=== PATIENT | female | born 1985 | race Caucasian/White ===

== ENCOUNTER 2021-05-04 09:18 | Outpatient (RCR) | payer OTHER, SELFPAY ==
[2021-05-04 09:25] VITALS: BMI 47.6
== END 2021-06-17 14:16 | disposition home or self-care (01) ==
LOC: ANHDMC 09:18
PROVIDERS: PCP Family Medicine; Visit Provider Family Medicine
DX: E66.01 Morbid (severe) obesity due to excess calories (principal); Z71.3 Dietary counseling and surveillance
CPT/HCPCS: 97802

== ENCOUNTER → 2021-07-27 07:41 | Outpatient (CLI) | payer OTHER, SELFPAY ==
--- NOTE | ~2021-07-27 | US_ITS ---
US abdomen complete EXAMINATION: US Abdomen Complete INDICATION: Elevated liver function PROCEDURE: Realtime High Resolution abdomen ultrasound. COMPARISON: Ultrasound dated 06/16/2011 FINDINGS: Gallbladder within normal limits. No gallstones, pericholecystic fluid, gallbladder wall t hickening or biliary dilatation. Common bile duct measures 4 mm. Liver echotexture is increased, consistent with fatty infiltration. Pancreas not adequately visualiz ed. Pancreatic tail is obscured by bowel gas. Spleen is unremarkeable. Renal echotexture is within normal limits bilaterally without hydronephrosis, contour deforming mass or renal stone. Right kidney measures 10.6 cm. Left kidney measures 11.5 cm. The aorta and IVC are not well visualized.. Portal vein is patent. No sonographic Sparks's sign indic ated by the technologist. IMPRESSION: 1: Hepatic steatosis. Reviewed, dictated and finalized at location A. IMPRESSION: 1: Hepatic steatosis.
== END ==
PROVIDERS: PCP Family Medicine; Visit Provider Physician Assistant Medical
DX: R79.89 Other specified abnormal findings of blood chemistry (principal); K76.0 Fatty (change of) liver, not elsewhere classified
CPT/HCPCS: 76700

== ENCOUNTER 2021-09-09 07:47 | Outpatient (CLI) | payer OTHER, SELFPAY ==
--- NOTE | 2021-09-14 17:06 | WPDHOMESLEEP ---
Sleep Study - Home Unattended Date of Study: 09/09/21 Ordering Provider: Charly Amador MD Interpreting Provider: Arleth Cramer, DO Home Sleep Study Type: Watch PAT Height: 1.68 m Weight: 133.81 kg Body Mass Index: 47.6 Neck Circumference (inches): 16 [place]: 18 Reason for Sleep Study Daytime hypersomnia, multiple nighttime awakenings Sleep History The patient is a 35-year-old female with anxiety, depression and fatty liver disease that had a sleep study ordered by her primary care for evaluation of sleep apnea. The patient occasionally awakens from sleep short of breath. She occasionally awakens at night with heartburn, belching or cough. She constantly snores loud enough that others complain. She frequently has trouble sleeping when she has a cold. She occasionally wakes up gasping for air throughout the night. He rarely has breathing problems at night observed by herself or others. She occasionally sweats excessively at night. She rarely notices heart palpitations or irregular heartbeats during the night. She frequently falls asleep during the day but never while driving. She denies cataplexy. she constantly has trouble at school or work due to sleepiness. She occasionally feels unable to move when waking up or falling asleep. She frequently experiences vivid dreamlike scenes upon awakening or falling asleep. She denies feeling afraid of falling to sleep. She occasionally has nightmares and frequently remembers her dreams. She frequently has thoughts racing through her mind. She occasionally feels sad or depressed. She occasionally has anxiety. She frequently has muscular tension. She rarely notices parts of her body jerk. She frequently kicks during the night. She occasionally has crawling and aching feelings in her legs and occasionally has leg pain during the night. She rarely grinds her teeth during sleep but never awakens with morning jaw pain. she is occasionally bothered by pain during the day and occasionally awakened by pain during the night. She frequently wakes up feeling stiff in the morning. She occasionally wakes up with sore achy muscles. She frequently wakes up with pain in the neck, spine or other joints. The patient goes to bed between midnight and 1:00 a.m. on weekdays and between 2-3 a.m. on the weekends it takes her 30 minutes to an hour to fall asleep. She wakes up 4-6 times throughout the night to urinate. She can fall back asleep within 5-10 minutes. She wakes up between 9-10 a.m. on both weekdays and weekends. She typically gets 5-6 hours of sleep per night. She will stay in bed for an hour after waking up in the morning. She currently lives alone. She will consume caffeinated beverages within 2 hours of bedtime. She does not engage in physical exercise before bedtime. She will watch television before falling asleep. She will take naps in the afternoon or the evening but they are not refreshing. The patient drinks 1-2 cups of coffee per day. She drinks 1-2 alcoholic beverages per week. She does use marijuana edibles. She denies tobacco use. [facility] Past Medical History Medical History Acute bronchitis due to other specified organisms BMI 45.0-49.9, adult Body mass index (BMI) of 40.1 to 44.9 in adult Body mass index [BMI] 45.0-49.9, adult (01/23/17) Body mass index [BMI]40.0-44.9, adult Chronic neck pain COVID-19 Dietary counseling and surveillance (01/14/16) Disturbance of skin sensation Left medial knee pain Macromastia Other chronic pain Pain, foot, right, chronic Family History Family History Father COVID-19 Mother COVID-19 Sibling COVID-19 Social History Social History Smoking status: Never smoker Second hand tobacco smoke exposure: No Alcohol intake: current Substance use: current
[2021-09-14 18:22] VITALS: BMI 47.6
== END 2021-09-10 11:43 | disposition home or self-care (01) ==
LOC: ANHCSM 07:49
PROVIDERS: PCP Family Medicine; Visit Provider Family Medicine
DX: G47.30 Sleep apnea, unspecified (principal); G47.8 Other sleep disorders
CPT/HCPCS: 95800

== ENCOUNTER 2021-10-27 08:39 | Outpatient (CLI) | payer OTHER, SELFPAY ==
--- NOTE | 2021-11-29 16:52 | WPDSLEEPSTUD ---
Sleep Study Date of Study: 10/27/21 Ordering Provider: Charly Amador MD Interpreting Physician: Arleth Cramer DO Sleep Study Type: Polysomnogram Height: 1.68 m Weight: 134.263 kg Body Mass Index: 47.7 Neck Circumference (inches): 16 [place]: 18 Reason for Sleep Study The patient had a home sleep study on 09/09/2021 that showed an AHI of 1.4. Recommended to have an in-lab study due to daytime symptoms. Sleep History The patient is a 35-year-old female with anxiety, depression and fatty liver disease that had a sleep study ordered by her primary care for evaluation of sleep apnea.? The patient occasionally awakens from sleep short of breath.? She occasionally awakens at night with heartburn, belching or cough.? She constantly snores loud enough that others complain.? She frequently has trouble sleeping when she has a cold.? She occasionally wakes up gasping for air throughout the night.? He rarely has breathing problems at night observed by herself or others.? She occasionally sweats excessively at night.? She rarely notices heart palpitations or irregular heartbeats during the night.? She frequently falls asleep during the day but never while driving.? She denies cataplexy. she constantly has trouble at school or work due to sleepiness.? She occasionally feels unable to move when waking up or falling asleep.? She frequently experiences vivid dreamlike scenes upon awakening or falling asleep.? She denies feeling afraid of falling to sleep.? She occasionally has nightmares and frequently remembers her dreams.? She frequently has thoughts racing through her mind.? She occasionally feels sad or depressed.? She occasionally has anxiety.? She frequently has muscular tension.? She rarely notices parts of her body jerk.? She frequently kicks during the night.? She occasionally has crawling and aching feelings in her legs and occasionally has leg pain during the night.? She rarely grinds her teeth during sleep but never awakens with morning jaw pain. she is occasionally bothered by pain during the day and occasionally awakened by pain during the night.? She frequently wakes up feeling stiff in the morning.? She occasionally wakes up with sore achy muscles.? She frequently wakes up with pain in the neck, spine or other joints.? The patient goes to bed between midnight and 1:00 a.m. on weekdays and between 2-3 a.m. on the weekends it takes her 30 minutes to an hour to fall asleep.? She wakes up 4-6 times throughout the night to urinate.? She can fall back asleep within 5-10 minutes.? She wakes up between 9-10 a.m. on both weekdays and weekends.? She typically gets 5-6 hours of sleep per night.? She will stay in bed for an hour after waking up in the morning.? She currently lives alone.? She will consume caffeinated beverages within 2 hours of bedtime.? She does not engage in physical exercise before bedtime.? She will watch television before falling asleep.? She will take naps in the afternoon or the evening but they are not refreshing.? The patient drinks 1-2 cups of coffee per day.? She drinks 1-2 alcoholic beverages per week.? She does use marijuana edibles.? She denies tobacco use. [facility] Past Medical History Medical History Acute bronchitis due to other specified organisms BMI 45.0-49.9, adult Body mass index (BMI) of 40.1 to 44.9 in adult Body mass index [BMI] 45.0-49.9, adult (01/23/17) Body mass index [BMI]40.0-44.9, adult Chronic neck pain COVID-19 Dietary counseling and surveillance (01/14/16) Disturbance of skin sensation Left medial knee pain Macromastia Other chronic pain Pain, foot, right, chronic Family History Family History Father COVID-19 Mother COVID-19 Sleep apnea Sibling COVID-19 Social History Social History Smoking status: Never smoker Second hand to
[2021-11-29 16:58] VITALS: BMI 47.7
== END 2021-10-28 06:04 | disposition home or self-care (01) ==
LOC: ANHCSM 08:40
PROVIDERS: PCP Family Medicine; Visit Provider Family Medicine
DX: G47.30 Sleep apnea, unspecified (principal); F51.8 Other sleep disorders not due to a substance or known physiological condition; G47.10 Hypersomnia, unspecified; R06.83 Snoring
CPT/HCPCS: 95810